=== PATIENT | male | born 1965 | race Caucasian/White ===

== ENCOUNTER → 2023-05-01 12:02 | Outpatient (REF) | payer BC, SELFPAY ==
[2023-05-01 14:13] LABS: Hepatitis A IgM Antibody Negative (Negative); Hepatitis B Core Ab, IgM Negative (Negative)
[2023-05-01 14:28] LABS: Hepatitis B Surface Antibody Negative; Hepatitis C Antibody Negative (Negative)
[2023-05-01 16:57] LABS: Hepatitis A Antibody, Total Negative (Negative)
== END ==
LOC: REG 12:02
PROVIDERS: ATTENDING PHYSICIAN Family Medicine
DX: R74.8 Abnormal levels of other serum enzymes (principal); R97.20 Elevated prostate specific antigen [PSA]; N41.0 Acute prostatitis
CPT/HCPCS: 36415; 86705; 86706; 86708; 86709; 86803; 87086

== ENCOUNTER → 2023-05-03 09:17 | Outpatient (REF) | payer BC, SELFPAY | LOC: RAD 09:17 | PROVIDERS: ATTENDING PHYSICIAN Family Medicine | DX: R74.8 Abnormal levels of other serum enzymes (principal); K57.90 Diverticulosis of intestine, part unspecified, without perforation or abscess without bleeding; E78.00 Pure hypercholesterolemia, unspecified | CPT/HCPCS: 76700 ==

== ENCOUNTER → 2023-05-07 08:21 | Outpatient (REF) | payer BC, SELFPAY ==
[2023-05-07 09:17] LABS: % Basophils 0.3 % (0-2); % Eosinophils 1.5 % (0-6); % Immature Granulocytes 0.2 % (0-0.5); % Lymphocytes 20.4 % (20.5-51.1); % Monocytes 6.7 % (1.7-9.3); % Neutrophils 70.9 % (42.2-75.2); Absolute Eosinophils 0.1 10^3/uL (0-0.7); Absolute Lymphocytes 1.8 10^3/uL (1.2-3.4); Absolute Monocytes 0.6 10^3/uL (0.1-0.6); Absolute Neutrophils 6.3 10^3/uL (1.4-6.5); Hematocrit 44.1 % (39.0-52.0); Hemoglobin 14.6 g/dL (13.0-18.0); Mean Corp Hgb Conc. 33.1 g/dL (33.0-37.0); Mean Corpuscular Volume 93.6 fL (80.0-94.0); Mean Platelet Volume 11.6 fL (7.4-10.4); Nucleated Red Blood Cells % 0 % (-); Platelet Count 184 10^3/uL (130-400); Red Blood Cell Count 4.71 10^6/uL (4.70-6.10); Red Cell Dist. Width 13.1 % (11.5-14.5); White Blood Cell Count 8.9 10^3/uL (4.8-10.8)
[2023-05-07 09:50] LABS: ALT (SGPT) 44 U/L (0-50); AST (SGOT) 35 U/L (17-59); Albumin 4.4 g/dl (3.5-5.0); Alkaline Phosphatase 70 U/L (38-126); Blood Urea Nitrogen 18 mg/dl (9-20); Calcium 9.4 mg/dl (8.4-10.2); Carbon Dioxide 29 mmol/L (22-30); Chloride 101 mmol/L (98-107); Glucose 99 mg/dl (70-99); Potassium 3.9 mmol/L (3.5-5.1); Sodium 137 mmol/L (135-145); Total Protein 6.9 g/dl (6.3-8.2); eGFR > 60.00
== END ==
LOC: REG 08:21
PROVIDERS: ATTENDING PHYSICIAN Family Medicine
DX: K21.9 Gastro-esophageal reflux disease without esophagitis (principal); K57.90 Diverticulosis of intestine, part unspecified, without perforation or abscess without bleeding
CPT/HCPCS: 36415; 80053; 85025

== ENCOUNTER → 2023-05-09 12:13 | Outpatient (REF) | payer BC, SELFPAY | LOC: HWRAD 12:13 | PROVIDERS: ATTENDING PHYSICIAN Family Medicine | DX: R10.2 Pelvic and perineal pain (principal) | CPT/HCPCS: 74177; Q9967 ==

== ENCOUNTER → 2023-05-17 11:52 | Outpatient (REF) | payer BC, SELFPAY ==
[2023-05-20 00:59] LABS: H. pylori Antigen, Fecal Negative (Negative)
== END ==
LOC: REG 11:52
PROVIDERS: ATTENDING PHYSICIAN Family Medicine
DX: R10.30 Lower abdominal pain, unspecified (principal); K59.09 Other constipation; R19.7 Diarrhea, unspecified
CPT/HCPCS: 87045; 87046; 87324; 87328; 87329; 87338; 87427; 87449

== ENCOUNTER → 2023-06-08 12:16 | Outpatient (REF) | payer BC, SELFPAY ==
[2023-06-08 12:54] LABS: Urine Albumin Negative (Neg - Trace); Urine Bilirubin Negative (Negative); Urine Character Clear (Clear); Urine Color Yellow; Urine Glucose Negative (Negative); Urine Ketone Negative (Negative); Urine Leukocyte Negative (Negative); Urine Nitrite Negative (Negative); Urine Occult Blood Negative (Negative); Urine Specific Gravity 1.005 (<1.030); Urine Urobilinogen Negative (Neg - 1+)
== END ==
LOC: REG 12:16
PROVIDERS: ATTENDING PHYSICIAN Specialist; FAMILY PHYSICIAN Family Medicine
DX: N39.0 Urinary tract infection, site not specified (principal); M89.9 Disorder of bone, unspecified
CPT/HCPCS: 72190; 81003; 87086

== ENCOUNTER → 2023-06-09 10:35 | Outpatient (REF) | payer BC, SELFPAY ==
[2023-06-09 11:27] LABS: ALT (SGPT) 23 U/L (0-50); AST (SGOT) 38 U/L (17-59); Albumin 4.4 g/dl (3.5-5.0); Alkaline Phosphatase 69 U/L (38-126); Blood Urea Nitrogen 20 mg/dl (9-20); Calcium 9.3 mg/dl (8.4-10.2); Carbon Dioxide 29 mmol/L (22-30); Chloride 104 mmol/L (98-107); Glucose 106 mg/dl (70-99); Potassium 4.3 mmol/L (3.5-5.1); Sodium 137 mmol/L (135-145); Total Bilirubin 0.8 mg/dl (0.2-1.3); Total Protein 6.8 g/dl (6.3-8.2); eGFR > 60.00
[2023-06-09 11:30] LABS: C-Reactive Protein < 5.00 mg/L (0.0-10.00)
[2023-06-09 11:52] LABS: Erythrocyte Sed Rate 6 mm/hour (0-20)
== END ==
LOC: REG 10:35
PROVIDERS: ATTENDING PHYSICIAN Family Medicine
DX: Z87.438 Personal history of other diseases of male genital organs (principal); R97.20 Elevated prostate specific antigen [PSA]; R30.0 Dysuria; N34.2 Other urethritis; R79.89 Other specified abnormal findings of blood chemistry; R10.2 Pelvic and perineal pain; R73.03 Prediabetes
CPT/HCPCS: 36415; 80053; 83036; 84403; 85652; 86140

== ENCOUNTER → 2023-07-11 10:03 | Outpatient (REF) | payer BC, SELFPAY ==
[2023-07-11 13:25] LABS: ALT (SGPT) 23 U/L (0-50); AST (SGOT) 34 U/L (17-59); Albumin 4.5 g/dl (3.5-5.0); Alkaline Phosphatase 70 U/L (38-126); Blood Urea Nitrogen 19 mg/dl (9-20); Calcium 9.5 mg/dl (8.4-10.2); Carbon Dioxide 27 mmol/L (22-30); Chloride 104 mmol/L (98-107); Glucose 106 mg/dl (70-99); Potassium 3.8 mmol/L (3.5-5.1); Sodium 136 mmol/L (135-145); Total Bilirubin 0.8 mg/dl (0.2-1.3); Total Protein 6.9 g/dl (6.3-8.2); eGFR > 60.00
[2023-07-11 13:39] LABS: % Basophils 0.6 % (0-2); % Eosinophils 0.8 % (0-6); % Immature Granulocytes 0.4 % (0-0.5); % Lymphocytes 32.9 % (20.5-51.1); % Monocytes 5.6 % (1.7-9.3); % Neutrophils 59.7 % (42.2-75.2); Absolute Lymphocytes 1.7 10^3/uL (1.2-3.4); Absolute Monocytes 0.3 10^3/uL (0.1-0.6); Hematocrit 44.9 % (39.0-52.0); Hemoglobin 14.9 g/dL (13.0-18.0); Mean Corp Hgb Conc. 33.2 g/dL (33.0-37.0); Mean Corpuscular Hgb 31.3 pg (27.0-31.0); Mean Corpuscular Volume 94.3 fL (80.0-94.0); Mean Platelet Volume 11.9 fL (7.4-10.4); Nucleated Red Blood Cells % 0 % (-); Platelet Count 170 10^3/uL (130-400); Red Blood Cell Count 4.76 10^6/uL (4.70-6.10); Red Cell Dist. Width 13.2 % (11.5-14.5)
[2023-07-11 13:45] LABS: Free T4 1.12 ng/dl (0.78-2.19); Luteinizing Hormone 2.17 mIU/ml (1.24-7.80); Prolactin 7.4 ng/ml (3.7-17.9)
[2023-07-11 13:52] LABS: Free T3 3.66 pg/ml (2.77-5.27)
[2023-07-11 13:58] LABS: TSH 1.03 uIU/ml (0.47-4.68)
[2023-07-11 14:00] LABS: Cortisol, Random 11.2 ug/dl
[2023-07-13 08:02] LABS: Thyroid Peroxidase Ab (TPO) 0.9 IU/mL (0.0-9.0)
[2023-07-13 08:12] LABS: Thyroglobulin 12.6 ng/mL (1.3-31.8); Thyroglobulin Antibodies <0.9 IU/mL (0.0-4.0)
[2023-07-13 14:42] LABS: C-Peptide 1.1 ng/mL (0.5-3.3)
[2023-07-13 14:53] LABS: Insulin, Random 4 uIU/mL
[2023-07-13 15:30] LABS: % Free Testosterone 2.1 % (1.6-2.9); Free Testosterone 53 pg/mL (47-244); Sex Hormone Binding Globulin 23 nmol/L (19-76); Total Testosterone 253 ng/dL (300-890)
== END ==
LOC: REG 10:03
PROVIDERS: ATTENDING PHYSICIAN Physician Assistant; FAMILY PHYSICIAN Family Medicine
DX: R73.03 Prediabetes (principal); R73.9 Hyperglycemia, unspecified; R53.83 Other fatigue
CPT/HCPCS: 36415; 80053; 82533; 83001; 83002; 83525; 84146; 84270; 84402; 84403; 84432; 84439; 84443; 84481; 84681; 85025; 86376; 86800

== ENCOUNTER → 2023-08-09 11:27 | Outpatient (REF) | payer BC, SELFPAY | LOC: REG 11:27 | PROVIDERS: ATTENDING PHYSICIAN Physician Assistant Medical; FAMILY PHYSICIAN Family Medicine | DX: R19.7 Diarrhea, unspecified (principal) | CPT/HCPCS: 87045; 87046; 87177; 87209; 87328; 87329; 87427 ==

== ENCOUNTER → 2023-08-15 15:37 | Outpatient (REF) | payer BC, SELFPAY | LOC: RAD 15:37 | PROVIDERS: ATTENDING PHYSICIAN Physician Assistant Medical | DX: M25.511 Pain in right shoulder (principal) | CPT/HCPCS: 73030 ==

== ENCOUNTER → 2023-08-20 10:27 | Outpatient (REF) | payer BC, SELFPAY | LOC: PAVMRI 10:27 | PROVIDERS: ATTENDING PHYSICIAN Physician Assistant Medical | DX: M25.511 Pain in right shoulder (principal) | CPT/HCPCS: 73221 ==

== ENCOUNTER 2023-08-31 14:04 | Outpatient (RCR) | payer BC, SELFPAY | END 2023-08-31 23:59 | disposition home or self-care (01) | LOC: RPT 14:04 | PROVIDERS: ATTENDING PHYSICIAN Physician Assistant Medical; FAMILY PHYSICIAN Family Medicine | DX: M25.511 Pain in right shoulder (principal); Z73.6 Limitation of activities due to disability | CPT/HCPCS: 97010; 97110; 97112; 97140; 97162 ==

== ENCOUNTER 2023-09-26 15:21 | Outpatient (RCR) | payer BC, SELFPAY | END 2023-09-26 23:59 | disposition home or self-care (01) | LOC: RPT 15:21 | PROVIDERS: ATTENDING PHYSICIAN Physician Assistant Medical; FAMILY PHYSICIAN Family Medicine | DX: M25.511 Pain in right shoulder (principal); Z73.6 Limitation of activities due to disability; M62.81 Muscle weakness (generalized) | CPT/HCPCS: 97010; 97110; 97112; 97140 ==

== ENCOUNTER 2023-10-03 15:08 | Outpatient (RCR) | payer BC, SELFPAY | END 2023-10-03 23:59 | disposition home or self-care (01) | LOC: RPT 15:08 | PROVIDERS: ATTENDING PHYSICIAN Physician Assistant Medical; FAMILY PHYSICIAN Family Medicine | DX: M25.511 Pain in right shoulder (principal) | CPT/HCPCS: 97110; 97112; 97140 ==

== ENCOUNTER → 2023-10-23 17:06 | Outpatient (REF) | payer BC, SELFPAY | LOC: REG 17:06 | PROVIDERS: ATTENDING PHYSICIAN Specialist; FAMILY PHYSICIAN Family Medicine | DX: R97.20 Elevated prostate specific antigen [PSA] (principal) | CPT/HCPCS: 36415; 84153; 84154 ==

== ENCOUNTER → 2023-12-11 06:18 | Day surgery (SDC) | payer BC, SELFPAY | LOC: GI 06:18 | PROVIDERS: ATTENDING PHYSICIAN Internal Medicine Gastroenterology | DX: R19.4 Change in bowel habit (principal); K64.8 Other hemorrhoids; K57.30 Diverticulosis of large intestine without perforation or abscess without bleeding; D12.5 Benign neoplasm of sigmoid colon | CPT/HCPCS: 45380; 88305 ==

== ENCOUNTER → 2024-04-14 10:51 | Outpatient (REF) | payer BC, SELFPAY | LOC: REG 10:51 | PROVIDERS: ATTENDING PHYSICIAN Specialist; FAMILY PHYSICIAN Family Medicine | DX: R97.20 Elevated prostate specific antigen [PSA] (principal) | CPT/HCPCS: 36415; 84153; 84154 ==

== ENCOUNTER → 2024-06-05 09:51 | Outpatient (REF) | payer BC, SELFPAY | LOC: MRI 3T 09:51 | PROVIDERS: ATTENDING PHYSICIAN Specialist; FAMILY PHYSICIAN Family Medicine | DX: R97.20 Elevated prostate specific antigen [PSA] (principal) | CPT/HCPCS: 72197 ==

== ENCOUNTER → 2024-07-17 10:44 | Outpatient (REF) | payer BC, SELFPAY ==
[2024-07-19 22:15] LABS: PSA Total 5.7 ng/mL (0.0-4.0)
== END ==
LOC: REG 10:44
PROVIDERS: ATTENDING PHYSICIAN Specialist; FAMILY PHYSICIAN Family Medicine
DX: R97.20 Elevated prostate specific antigen [PSA] (principal)
CPT/HCPCS: 36415; 84153; 84154

== ENCOUNTER → 2024-10-13 10:15 | Outpatient (REF) | payer BC, SELFPAY ==
[2024-10-13 11:40] LABS: Hematocrit 46.7 % (39.0-52.0); Hemoglobin 15.4 g/dL (13.0-18.0); Mean Corp Hgb Conc. 33.0 g/dL (33.0-37.0); Mean Corpuscular Volume 92.1 fL (80.0-94.0); Nucleated Red Blood Cells % 0 % (-); Platelet Count 160 10^3/uL (130-400); Red Cell Dist. Width 12.7 % (11.5-14.5)
[2024-10-13 11:44] LABS: Urine Character Clear (Clear)
[2024-10-13 12:25] LABS: ALT (SGPT) 23 U/L (0-50); AST (SGOT) 26 U/L (17-59); Albumin 5.0 g/dl (3.5-5.0); Alkaline Phosphatase 60 U/L (38-126); Blood Urea Nitrogen 20 mg/dl (9-20); Calcium 9.9 mg/dl (8.4-10.2); Carbon Dioxide 27 mmol/L (22-30); Chloride 103 mmol/L (98-107); Glucose 117 mg/dl (70-99); HDL Cholesterol 49 mg/dl; LDL Cholesterol, Calculated 170 mg/dl; Potassium 4.5 mmol/L (3.5-5.1); Sodium 140 mmol/L (135-145); Total Protein 7.7 g/dl (6.3-8.2); Very Low Density Lipoprotein 14 mg/dl (0-30); eGFR > 60.00
[2024-10-13 12:26] LABS: Glycohemoglobin (HgbA1c) 6.0 % (4.0-5.6)
[2024-10-14 02:28] LABS: Hepatitis C Antibody Negative (Negative)
[2024-10-14 15:21] LABS: Syphilis/T. pallidum Ab Reflex Negative (Negative)
== END ==
LOC: REG 10:15
PROVIDERS: ATTENDING PHYSICIAN Family Medicine
DX: E78.00 Pure hypercholesterolemia, unspecified (principal); R73.03 Prediabetes; R97.20 Elevated prostate specific antigen [PSA]; Z00.01 Encounter for general adult medical examination with abnormal findings; Z20.2 Contact with and (suspected) exposure to infections with a predominantly sexual mode of transmission
CPT/HCPCS: 36415; 80053; 80061; 81003; 83036; 84443; 85025; 86780; 86803; 87389; 87491; 87591

== ENCOUNTER → 2024-11-11 16:00 | Outpatient (REF) | payer BC, SELFPAY | LOC: REG 16:00 | PROVIDERS: ATTENDING PHYSICIAN Specialist; FAMILY PHYSICIAN Family Medicine | DX: R97.20 Elevated prostate specific antigen [PSA] (principal) | CPT/HCPCS: 36415; 84153; 84154 ==

== ENCOUNTER → 2025-01-22 13:40 | Outpatient (REF) | payer BC, SELFPAY | LOC: HWRAD 13:40 | PROVIDERS: ATTENDING PHYSICIAN Otolaryngology Facial Plastic Surgery; FAMILY PHYSICIAN Family Medicine | DX: J30.1 Allergic rhinitis due to pollen (principal); K21.9 Gastro-esophageal reflux disease without esophagitis; R09.82 Postnasal drip | CPT/HCPCS: 70486 ==

== ENCOUNTER → 2025-03-04 09:13 | Outpatient (REF) | payer BC, SELFPAY | LOC: PAVMRI 09:13 | PROVIDERS: ATTENDING PHYSICIAN Physician Assistant; FAMILY PHYSICIAN Family Medicine | DX: M54.50 Low back pain, unspecified (principal) | CPT/HCPCS: 72148 ==

== ENCOUNTER → 2025-03-17 12:42 | Outpatient (REF) | payer BC, SELFPAY | LOC: REG 12:42 | PROVIDERS: ATTENDING PHYSICIAN Specialist | DX: R97.20 Elevated prostate specific antigen [PSA] (principal) | CPT/HCPCS: 36415; 84153; 84154 ==

== ENCOUNTER 2025-04-01 10:25 | Outpatient (RCR) | payer BC, SELFPAY | END 2025-04-01 23:59 | disposition home or self-care (01) | LOC: RPT 10:25 | PROVIDERS: ATTENDING PHYSICIAN Physician Assistant; FAMILY PHYSICIAN Family Medicine | DX: M54.16 Radiculopathy, lumbar region (principal); Z73.6 Limitation of activities due to disability; R26.2 Difficulty in walking, not elsewhere classified; M62.81 Muscle weakness (generalized); G89.29 Other chronic pain | CPT/HCPCS: 97010; 97110; 97112; 97140; 97162 ==